=== PATIENT | female | born 1960 | race Caucasian/White ===

== ENCOUNTER 2018-07-29 15:21 | Emergency (ER) | payer MEDICAID ==
[~2018-07-29] VITALS: Ht 167.6 cm; Wt 70.5 kg
[~2018-07-29 15:21] MED LIST: CLIN-96 PO; HYDR-4383 PO; PIP1KIT21 TP; SUCR1ORA12 PO
[2018-07-29 15:33] VITALS: BP 110/77
[2018-07-29] MEDS ORDERED: ketorolac tromethamine 15mg/ml inj. IM ONE (17:00)
[2018-07-29] MEDS ORDERED: TRAM1TAB PO (17:01)
[2018-07-29] MEDS ORDERED: METH4TAB81 PO (17:01)
== END 2018-07-29 17:23 | disposition home or self-care (01) ==
LOC: ER 15:21
DX: M16.12 Unilateral primary osteoarthritis, left hip (principal); I50.9 Heart failure, unspecified; I11.0 Hypertensive heart disease with heart failure; J44.9 Chronic obstructive pulmonary disease, unspecified; E11.9 Type 2 diabetes mellitus without complications; G89.29 Other chronic pain; F17.200 Nicotine dependence, unspecified, uncomplicated; Z90.49 Acquired absence of other specified parts of digestive tract; Z95.0 Presence of cardiac pacemaker; Z98.890 Other specified postprocedural states; Z56.0 Unemployment, unspecified; Z88.0 Allergy status to penicillin; Z88.8 Allergy status to other drugs, medicaments and biological substances; Z91.018 Allergy to other foods; Z79.2 Long term (current) use of antibiotics; Z79.899 Other long term (current) drug therapy
CPT/HCPCS: 73501; 96372; 99284; J1885

== ENCOUNTER 2018-09-08 14:05 | Emergency (ER) | payer MEDICAID ==
[~2018-09-08] VITALS: Ht 170.2 cm; Wt 68.2 kg
[~2018-09-08 14:05] MED LIST changes: +METH4TAB81 PO
[2018-09-08] MEDS ORDERED: NAPR-996 PO (14:32)
[2018-09-08] MEDS ORDERED: HYDR-4383 PO (14:32)
[2018-09-08] MEDS ORDERED: HYDROcodone/acetaminophen 10/325mg tab PO ONE (14:35)
[2018-09-08] MEDS ORDERED: ketorolac trometh inj. 60 MG/2 ML VIAL IM ONE (14:35)
[2018-09-08 14:43] VITALS: BP 115/76
== END 2018-09-08 14:48 | disposition home or self-care (01) ==
LOC: ER 14:05
DX: M16.12 Unilateral primary osteoarthritis, left hip (principal); I11.0 Hypertensive heart disease with heart failure; I50.9 Heart failure, unspecified; J45.909 Unspecified asthma, uncomplicated; E11.9 Type 2 diabetes mellitus without complications; Z86.73 Personal history of transient ischemic attack (TIA), and cerebral infarction without residual deficits; G89.29 Other chronic pain; Z90.49 Acquired absence of other specified parts of digestive tract; Z90.89 Acquired absence of other organs; Z95.0 Presence of cardiac pacemaker; Z91.018 Allergy to other foods; Z88.0 Allergy status to penicillin; Z88.8 Allergy status to other drugs, medicaments and biological substances; Z79.899 Other long term (current) drug therapy; Z56.0 Unemployment, unspecified
CPT/HCPCS: 96372; 99283; J1885

== ENCOUNTER 2019-04-13 23:27 | Emergency (ER) | payer MEDICAID ==
[~2019-04-13] VITALS: Ht 170.2 cm; Wt 70.0 kg
[~2019-04-13 23:27] MED LIST changes: +CLIN-90 PO; -CLIN-96 PO; +DICL100G15 TOP; +NAPR-996 PO
[2019-04-14] MEDS ORDERED: ipratropium/albuterol 3ml nebule NEB ONE (00:05)
[2019-04-14] MEDS ORDERED: benzonatate 100mg capsule PO ONE (00:05)
--- NOTE | 2019-04-14 00:55 | NUR ---
PT ASKING IF I CAN MENTION TO MD ABOUT THE PAIN SHE IS HAVING IN HER BACK AND HIP
[2019-04-14] MEDS ORDERED: ibuprofen tablet 400 MG TABLET PO ONE (01:00)
[2019-04-14] MEDS ORDERED: BENZ-16 PO (01:25)
[2019-04-14] MEDS ORDERED: ALBU18HF2 INH (01:25)
[2019-04-14] MEDS ORDERED: INHA1INH2 INH (01:25)
--- NOTE | 2019-04-14 01:50 | NUR ---
PT NOT IN HER ROOM VISITOR NOT ABLE TO FIND HER . CHECKED ALL BATHROOMS. PT NOT FOUND. VISITOR WENT OUT TO CAR AND BROUGHT PT BACK IN . PT STATES SHE THOUGHT IT WAS TIME TO GO . REMINDED PT THAT THEY WERE NOT DISCHARGED , THEY DIDNT SIGN PAPER WORK NOR WERE THEY TOLD THEY CAN LEAVE
[2019-04-14 01:57] VITALS: BP 113/69
== END 2019-04-14 01:52 | disposition home or self-care (01) ==
LOC: ER 23:28
DX: J44.1 Chronic obstructive pulmonary disease with (acute) exacerbation (principal); F17.200 Nicotine dependence, unspecified, uncomplicated; I11.0 Hypertensive heart disease with heart failure; I50.9 Heart failure, unspecified; E11.9 Type 2 diabetes mellitus without complications; G89.29 Other chronic pain; F12.90 Cannabis use, unspecified, uncomplicated; Z86.73 Personal history of transient ischemic attack (TIA), and cerebral infarction without residual deficits; Z56.0 Unemployment, unspecified; Z90.49 Acquired absence of other specified parts of digestive tract; Z95.0 Presence of cardiac pacemaker; Z88.8 Allergy status to other drugs, medicaments and biological substances; Z91.018 Allergy to other foods; Z88.0 Allergy status to penicillin; Z79.899 Other long term (current) drug therapy
CPT/HCPCS: 71046; 94640; 94760; 99283

== ENCOUNTER 2019-10-23 05:47 | Inpatient (IN) | payer MEDICAID ==
[~2019-10-23] VITALS: Ht 170.2 cm; Wt 68.1 kg
[~2019-10-23 05:47] MED LIST changes: +ALBU18HF2 INH; -CLIN-90 PO; +CLIN-97 PO; +INHA1INH2 INH
[2019-10-23] MEDS ORDERED: dexamethasone sod phosphate 10mg/ml inj IV STA (05:56)
[2019-10-23] MEDS ORDERED: ipratropium/albuterol 3ml nebule NEB ONE (06:00)
[2019-10-23 06:30] LABS: BASOPHILS % (AUTO) 0.5 % (0-1); EOSINOPHILS # (AUTO) 0.1 X10'3 (0-0.9); EOSINOPHILS % (AUTO) 1.2 % (0-6); HEMATOCRIT 40.1 % (35.0-45.0); HEMOGLOBIN 13.1 g/dl (12.0-16.0); LYMPHOCYTES % (AUTO) 24.1 % (21-51); MEAN CORPUSCULAR HEMOGLOBIN 29.3 PG (27.0-31.0); MEAN CORPUSCULAR HGB CONC 32.7 g/dL (33.0-36.5); MEAN CORPUSCULAR VOLUME 89.5 FL (78-98); MEAN PLATELET VOLUME 9.3 FL (7.4-10.4); MONOCYTES # (AUTO) 0.5 X10'3 (0-0.9); MONOCYTES % (AUTO) 6.4 % (2-12); NEUTROPHILS # (AUTO) 5.7 X10'3 (1.8-7.7); NEUTROPHILS % (AUTO) 67.8 % (42-75); PLATELET COUNT 205 X10'3 (140-440); RED BLOOD COUNT 4.48 X10'6 (4.20-5.60); RED CELL DISTRIBUTION WIDTH 14.7 % (11.5-14.5); WHITE BLOOD COUNT 8.5 X10'3 (4.5-11.0)
[2019-10-23 06:35] LABS: ALANINE AMINOTRANSFERASE 21 U/L (12-78); ALBUMIN 3.2 G/DL (3.4-5.0); ALKALINE PHOSPHATASE 86 IU/L (46-116); ANION GAP 7 (8-16); ASPARTATE AMINO TRANSFERASE 24 U/L (10-37); BILIRUBIN,TOTAL 0.7 MG/DL (0.1-1.0); BLOOD UREA NITROGEN 11 MG/DL (7-18); BUN/CREATININE RATIO 15.3 (6.6-38.0); CALCIUM 8.4 MG/DL (8.5-10.1); CHLORIDE 104 MMOL/L (99-107); CREATININE 0.72 MG/DL (0.40-0.90); GLUCOSE 141 MG/DL (70-104); POTASSIUM 3.3 MMOL/L (3.5-5.1); SODIUM 139 MMOL/L (135-145); TOTAL CARBON DIOXIDE 27.8 MMOL/L (24-32); TOTAL PROTEIN 6.5 G/DL (6.4-8.2); eGFR 83 ML/MIN
[2019-10-23] MEDS ORDERED: potassium Cl 20 mEq SR tablet PO STA (06:55)
[2019-10-23] MEDS ORDERED: DOXYCYCLINE 100MG CAPSULE PO STA (06:57)
--- NOTE | 2019-10-23 07:58 | NUR ---
rapid covid swab done results -
[2019-10-23] MEDS ORDERED: aspirin 81mg tab.chew PO ONE (08:20)
[2019-10-23] MEDS ORDERED: albuterol 2.5 MG/3 ML nebule CONTNEB PRN (09:30)
[2019-10-23] MEDS ORDERED: LORazepam 2 mg/ml vial IV ONE (09:30)
[2019-10-23] MEDS ORDERED: acetaminophen 650mg rectal suppository RC PRN (09:40)
[2019-10-23] MEDS ORDERED: ondansetron/PF 4mg/2ml inj IV PRN (09:40)
[2019-10-23] MEDS ORDERED: bisacodyl 10mg suppository rectal RC PRN (09:40)
[2019-10-23] MEDS ORDERED: diphenhydrAMINE 25mg capsule PO PRN (09:40)
[2019-10-23] MEDS ORDERED: HYDROcodone/acetaminophen 5mg/325mg tablet PO PRN (09:40)
[2019-10-23] MEDS ORDERED: magnesium 4gm in 100ml NS 100 ML IV PRN (09:40)
[2019-10-23] MEDS ORDERED: magnesium Cl slow-release 64mg tablet PO PRN (09:40)
[2019-10-23] MEDS ORDERED: magnesium 2GM in 50ml NS 50 ML IV PRN (09:40)
[2019-10-23] MEDS ORDERED: mag hydrox/Alum hydrox/simeth 30ml oral suspension PO PRN (09:40)
[2019-10-23] MEDS ORDERED: potassium Cl 20 mEq SR tablet PO PRN (09:40)
[2019-10-23] MEDS ORDERED: magnesium hydroxide 30ml (MOM) UD suspension PO PRN (09:40)
[2019-10-23] MEDS ORDERED: methylPREDNISolone sod succ 125mg/2ml vial IV ONE (09:40)
[2019-10-23] MEDS ORDERED: potassium CL 10mEq/100ml bag 100 ML IV PRN ×2 (09:40)
[2019-10-23] MEDS ORDERED: morphine 2 MG/ML inj. syringe IV PRN ×2 (09:40)
[2019-10-23] MEDS ORDERED: acetaminophen 325mg tablet PO PRN ×2 (09:40)
[2019-10-23] MEDS ORDERED: CARV25TA2 (09:50)
[2019-10-23] MEDS: levoFLOXACIN-Levaquin 750MG/D5 150 ML IV SCH (09:57)
[2019-10-23] MEDS: furosemide 10 MG/1 ML 10ml inj IV SCH ×2 (09:57→19:45)
[2019-10-23] MEDS: normal saline 1000ml 1,000 ML IV SCH (09:58)
[2019-10-23 10:03] LABS: HEMOGLOBIN A1C 6.3 % (4.5-6.2)
--- NOTE | 2019-10-23 10:30 | NUR ---
Patient in room PCU 3018. I have received report from Justice HENRY and had the opportunity to ask questions and assume patient care.
[2019-10-23 10:44] VITALS: BP 125/92
[2019-10-23 11:21] LABS: CLARITY,URINE CLEAR (Clear); COLOR,URINE YELLOW (Yellow); GLUCOSE, URINE NEGATIVE (Neg); KETONES,URINE NEGATIVE (Neg); LEUKOCYTE ESTERASE ,URINE TRACE (Neg); NITRITES, URINE NEGATIVE (Neg); OCCULT BLOOD,URINE TRACE-INTACT (Neg); PROTEIN,URINE NEGATIVE (Neg)
[2019-10-23 11:25] LABS: BACTERIA,URINE NONE SEEN /HPF (Neg); MUCUS STRANDS NONE SEEN /LPF (Neg); RBC,URINE NONE SEEN /HPF (0-2); SQUAMOUS EPITHELIAL CELL,UR FEW /LPF (FEW); UA COLLECTION TYPE VOIDED; WBC,URINE 0-4 /HPF (0-4)
[2019-10-23] MEDS: ipratropium/albuterol 3ml nebule NEB SCH ×4 (12:07→23:22)
[2019-10-23 12:31] LABS: ABG BASE EXCESS 3.2 mmol/L (-2.0-2.0); ABG HCO3 26.1 mmol/L (22.0-26.0); ABG OXYGEN SATURATION 93.5 % (94-97); ABG PCO2 (T) 34.8 mmHg (32.0-45.0); ALLEN'S TEST POSITIVE; FCOHb 1.8 % (0.0-3.9); FLOW 3 L/min; FMetHb 0.2 % (0.0-1.5); FO2Hb 91.6 % (94-97); TOTAL HEMOGLOBIN 15.6 G/dl (12.0-16.0)
[2019-10-23 15:00] VITALS: BP 114/83
[2019-10-23] MEDS ORDERED: CARV25TA PO ×2 (15:59→16:16)
[2019-10-23] MEDS ORDERED: NAPR-56 PO (16:14)
[2019-10-23] MEDS ORDERED: ALB0.5UD IH (16:14)
[2019-10-23] MEDS: methylPREDNISolone sod succ 125mg/2ml vial IV SCH ×2 (16:34→23:45)
[2019-10-23] MEDS: HYDROcodone/acetaminophen 10/325mg tab PO PRN (16:35)
--- NOTE | 2019-10-23 17:49 | NUR ---
Page to JEANETTE PAGER ID: [phone] MESSAGE: Patient Vandana 3018 A. Patient would like a nicotine patch please. Current half a pack a day. Muna BENNY [phone]
[2019-10-23] MEDS ORDERED: nicotine 14mg patch - 24hr TD ONE (18:15)
--- NOTE | 2019-10-23 18:35 | NUR ---
Patient in room PCU 3018. I have received report from ELAINE Toro and had the opportunity to ask questions and assume patient care.
--- NOTE | 2019-10-23 18:37 | NUR ---
Problems reprioritized. Patient report given, questions answered & plan of care reviewed with Елена HENRY.
[2019-10-23 19:00] VITALS: BP 111/63
[2019-10-23] MEDS: heparin, porcine 5000 units/ml vial SQ SCH (19:44)
[2019-10-23] MEDS: K and/or MAG REPLACEMENT MC SCH (19:45)
[2019-10-23 20:02] LABS: ETHANOL < 0.010 GM/DL (0.0-0.010)
[2019-10-23] MEDS ORDERED: temazepam 15mg capsule PO PRN (21:00)
[2019-10-23 22:50] LABS: URINE AMPHETAMINE SCREEN NEGATIVE (Neg); URINE BARBITUATE SCREEN NEGATIVE (Neg); URINE BENZODIAZEPINES SCREEN NEGATIVE (Neg); URINE CANNABINOID SCREEN NEGATIVE (Neg); URINE COCAINE SCREEN NEGATIVE (Neg); URINE METHADONE SCREEN NEGATIVE (Neg); URINE OPIATE SCREEN POSITIVE (Neg); URINE PHENCYCLIDINE SCREEN NEGATIVE (Neg)
[2019-10-23 23:00] VITALS: BP 113/76
[2019-10-24] VITALS (16 sets, daily range): BP systolic 94–119; BP diastolic 53–78
[2019-10-24] MEDS ORDERED: CefTRIAXone/D5W-Rocephin 1gm 50 ML IV SCH
[2019-10-24] MEDS: HYDROcodone/acetaminophen 10/325mg tab PO PRN ×4 (01:17→23:24)
[2019-10-24] MEDS: ipratropium/albuterol 3ml nebule NEB SCH ×6 (03:07→23:41)
[2019-10-24 06:02] LABS: BASOPHILS % (AUTO) 0.1 % (0-1); EOSINOPHILS % (AUTO) 0 % (0-6); HEMATOCRIT 43.2 % (35.0-45.0); LYMPHOCYTES # (AUTO) 0.9 X10'3 (1.1-4.8); LYMPHOCYTES % (AUTO) 4.5 % (21-51); MEAN CORPUSCULAR HEMOGLOBIN 28.9 PG (27.0-31.0); MEAN CORPUSCULAR HGB CONC 32.5 g/dL (33.0-36.5); MEAN CORPUSCULAR VOLUME 88.8 FL (78-98); MEAN PLATELET VOLUME 9.7 FL (7.4-10.4); MONOCYTES # (AUTO) 0.3 X10'3 (0-0.9); MONOCYTES % (AUTO) 1.8 % (2-12); NEUTROPHILS # (AUTO) 18.2 X10'3 (1.8-7.7); NEUTROPHILS % (AUTO) 93.6 % (42-75); PLATELET COUNT 229 X10'3 (140-440); RED BLOOD COUNT 4.86 X10'6 (4.20-5.60); RED CELL DISTRIBUTION WIDTH 13.9 % (11.5-14.5); WHITE BLOOD COUNT 19.4 X10'3 (4.5-11.0)
--- NOTE | 2019-10-24 06:14 | NUR ---
Problems reprioritized. Patient report given, questions answered & plan of care reviewed with ELAINE Toro.
[2019-10-24] MEDS ORDERED: iohexol 350MG/ML 100ml bottle IV ONE (06:20)
[2019-10-24 06:24] LABS: ALANINE AMINOTRANSFERASE 16 U/L (12-78); ALBUMIN 3.2 G/DL (3.4-5.0); ALBUMIN/GLOBULIN RATIO 0.9 (1.1-1.5); ALKALINE PHOSPHATASE 83 IU/L (46-116); ANION GAP 10 (8-16); ASPARTATE AMINO TRANSFERASE 16 U/L (10-37); BILIRUBIN,TOTAL 0.8 MG/DL (0.1-1.0); BLOOD UREA NITROGEN 13 MG/DL (7-18); BUN/CREATININE RATIO 16.5 (6.6-38.0); CALCIUM 9.2 MG/DL (8.5-10.1); CHLORIDE 100 MMOL/L (99-107); CHOLESTEROL 128 MG/DL (0-200); CREATININE 0.79 MG/DL (0.40-0.90); GLUCOSE 163 MG/DL (70-104); HDL CHOLESTEROL 32 MG/DL (35-60); LDL CHOLESTEROL 86 MG/DL (50-100); MAGNESIUM 1.5 MG/DL (1.5-2.4); PHOSPHORUS 3.8 MG/DL (2.3-4.5); POTASSIUM 3.3 MMOL/L (3.5-5.1); SODIUM 139 MMOL/L (135-145); TOTAL CARBON DIOXIDE 28.8 MMOL/L (24-32); TOTAL PROTEIN 6.7 G/DL (6.4-8.2); TRIGLYCERIDES 47 MG/DL (20-135); eGFR 75 ML/MIN
--- NOTE | 2019-10-24 06:30 | NUR ---
Patient in room PCU 3018. I have received report from ELAINE Christiansen and had the opportunity to ask questions and assume patient care.
[2019-10-24] MEDS: potassium Cl 20 mEq SR tablet PO PRN ×3 (07:47→17:38)
[2019-10-24] MEDS: levoFLOXACIN-Levaquin 750MG/D5 150 ML IV SCH (07:48)
[2019-10-24] MEDS: nicotine 14mg patch - 24hr TD SCH (07:48)
[2019-10-24] MEDS: methylPREDNISolone sod succ 125mg/2ml vial IV SCH ×3 (07:49→23:23)
[2019-10-24] MEDS: furosemide 10 MG/1 ML 10ml inj IV SCH ×2 (07:49→19:55)
[2019-10-24] MEDS: heparin, porcine 5000 units/ml vial SQ SCH ×2 (07:49→19:51)
[2019-10-24] MEDS: K and/or MAG REPLACEMENT MC SCH ×2 (07:49→20:00)
--- NOTE | 2019-10-24 09:45 | NUR ---
Patient's expected to come and picker machine operator chapin, total $52.00 from patient. Chapin counted by two nurses and confirmed. Will be delivered to lobby by me when he gets here.
[2019-10-24] MEDS ORDERED: nitroGLYCERIN 0.4mg SUBLingual tab SL PRN (10:00)
[2019-10-24] MEDS ORDERED: metoprolol tartrate 1mg/ml inj IV PRN (10:00)
[2019-10-24] MEDS ORDERED: aminophylline 250mg/10ml inj. IV PRN (10:00)
[2019-10-24] MEDS ORDERED: regadenoson 0.4mg/5ml syringe IV PRN (10:00)
--- NOTE | 2019-10-24 18:27 | NUR ---
Problems reprioritized. Patient report given, questions answered & plan of care reviewed with ELAINE Queen. Patient stable at transfer of care.
--- NOTE | 2019-10-24 19:24 | NUR ---
Patient in room PCU 3018. I have received report from Muna HENRY and had the opportunity to ask questions and assume patient care.
[2019-10-24] MEDS: lactobacillus rhamnosus 10,000 MMU CELLS/CAPSULE PO SCH (19:51)
[2019-10-25] VITALS (13 sets, daily range): BP systolic 95–118; BP diastolic 60–80
[2019-10-25] MEDS: ipratropium/albuterol 3ml nebule NEB SCH ×6 (03:22→23:10)
[2019-10-25] MEDS: HYDROcodone/acetaminophen 10/325mg tab PO PRN ×5 (03:46→23:50)
[2019-10-25 05:54] LABS: BASOPHILS % (AUTO) 0.1 % (0-1); EOSINOPHILS % (AUTO) 0 % (0-6); HEMATOCRIT 42.7 % (35.0-45.0); HEMOGLOBIN 13.8 g/dl (12.0-16.0); LYMPHOCYTES # (AUTO) 0.6 X10'3 (1.1-4.8); LYMPHOCYTES % (AUTO) 2.9 % (21-51); MEAN CORPUSCULAR HEMOGLOBIN 28.7 PG (27.0-31.0); MEAN CORPUSCULAR HGB CONC 32.4 g/dL (33.0-36.5); MEAN CORPUSCULAR VOLUME 88.6 FL (78-98); MEAN PLATELET VOLUME 9.5 FL (7.4-10.4); MONOCYTES # (AUTO) 0.5 X10'3 (0-0.9); MONOCYTES % (AUTO) 2.4 % (2-12); NEUTROPHILS # (AUTO) 20.9 X10'3 (1.8-7.7); NEUTROPHILS % (AUTO) 94.6 % (42-75); PLATELET COUNT 254 X10'3 (140-440); RED BLOOD COUNT 4.82 X10'6 (4.20-5.60); RED CELL DISTRIBUTION WIDTH 14.5 % (11.5-14.5); WHITE BLOOD COUNT 22.1 X10'3 (4.5-11.0)
[2019-10-25 05:58] LABS: ALANINE AMINOTRANSFERASE 19 U/L (12-78); ALBUMIN 3.3 G/DL (3.4-5.0); ALKALINE PHOSPHATASE 84 IU/L (46-116); ANION GAP 5 (8-16); ASPARTATE AMINO TRANSFERASE 10 U/L (10-37); BILIRUBIN,TOTAL 0.4 MG/DL (0.1-1.0); BLOOD UREA NITROGEN 24 MG/DL (7-18); BUN/CREATININE RATIO 28.2 (6.6-38.0); CALCIUM 9.1 MG/DL (8.5-10.1); CHLORIDE 102 MMOL/L (99-107); CREATININE 0.85 MG/DL (0.40-0.90); GLUCOSE 181 MG/DL (70-104); PHOSPHORUS 4.3 MG/DL (2.3-4.5); POTASSIUM 4.3 MMOL/L (3.5-5.1); SODIUM 139 MMOL/L (135-145); TOTAL CARBON DIOXIDE 31.7 MMOL/L (24-32); TOTAL PROTEIN 6.7 G/DL (6.4-8.2); eGFR 69 ML/MIN
--- NOTE | 2019-10-25 06:12 | NUR ---
Problems reprioritized. Patient report given, questions answered & plan of care reviewed with Jim HENRY.
--- NOTE | 2019-10-25 06:30 | NUR ---
Patient in room PCU 3018. I have received report from Tereza HENRY and had the opportunity to ask questions and assume patient care.
[2019-10-25] MEDS: levoFLOXACIN-Levaquin 750MG/D5 150 ML IV SCH (07:24)
[2019-10-25] MEDS: heparin, porcine 5000 units/ml vial SQ SCH (07:25)
[2019-10-25] MEDS: methylPREDNISolone sod succ 125mg/2ml vial IV SCH ×3 (07:26→23:55)
[2019-10-25] MEDS: furosemide 10 MG/1 ML 10ml inj IV SCH ×2 (07:29→19:38)
--- NOTE | 2019-10-25 07:49 | NUR ---
Paged Dr. Gilbert. Mohini Ross, [id number]. [facility] patients meat packager is Dr. Lares. Rach Wilson wanted you notified. Patient would prefer to be seen by Dr. Lares. Jim [phone]
[2019-10-25] MEDS: K and/or MAG REPLACEMENT MC SCH ×2 (08:00→19:56)
[2019-10-25] MEDS: lactobacillus rhamnosus 10,000 MMU CELLS/CAPSULE PO SCH ×2 (08:35→19:39)
[2019-10-25] MEDS: nicotine 14mg patch - 24hr TD SCH (08:41)
[2019-10-25] MEDS: normal saline 1000ml 1,000 ML IV SCH (10:12)
[2019-10-25] MEDS ORDERED: midazolam 2 mg/2 ml injection ONE ×3 (11:16→12:06)
[2019-10-25] MEDS ORDERED: iohexol 350 MG/ML 50ML vial IV ONE (11:17)
[2019-10-25] MEDS ORDERED: LIDOcaine 1% (10mg/ml)w/preservative injection 20ml MDV ONE (11:17)
[2019-10-25] MEDS ORDERED: fentaNYL/PF 50MCG/1 ML 2ML syringe ONE ×2 (11:17→12:06)
[2019-10-25] MEDS ORDERED: heparin 1,000unit/ml 10ml vial 10 ML ONE (11:17)
[2019-10-25] MEDS ORDERED: iohexol 350MG/ML 100ml bottle IV ONE (11:17)
[2019-10-25] MEDS ORDERED: normal saline 1000ml 1,000 ML IV SCH (12:40)
[2019-10-25] MEDS ORDERED: OXAZEpam 15mg capsule PO PRN (14:20)
--- NOTE | 2019-10-25 15:37 | NUR ---
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
--- NOTE | 2019-10-25 18:01 | NUR ---
Patient not on ONEL or ARB per MD orders
--- NOTE | 2019-10-25 18:12 | NUR ---
Problems reprioritized. Patient report given, questions answered & plan of care reviewed with Tereza HENRY.
--- NOTE | 2019-10-25 18:45 | NUR ---
Patient in room PCU 3018. I have received report from Jim HENRY and had the opportunity to ask questions and assume patient care.
[2019-10-25] MEDS ORDERED: amiodarone 150mg/dext, iso-os 100 ML IV ONE ×3 (19:10→19:25)
--- NOTE | 2019-10-25 19:17 | NUR ---
Pt had 6 beat run of vtach, notified Dr Lares of change in tele monitoring. Amiodarone was ordered.
[2019-10-25] MEDS: carVEDilol 12.5mg tablet PO SCH (19:39)
[2019-10-26 02:00] VITALS: BP 97/64
[2019-10-26] MEDS: ipratropium/albuterol 3ml nebule NEB SCH ×3 (03:07→11:21)
[2019-10-26] MEDS: normal saline 1000ml 1,000 ML IV SCH (04:34)
--- NOTE | 2019-10-26 06:14 | NUR ---
Problems reprioritized. Patient report given, questions answered & plan of care reviewed with Jim HENRY.
[2019-10-26 06:46] LABS: BASOPHILS % (AUTO) 0.1 % (0-1); EOSINOPHILS % (AUTO) 0 % (0-6); HEMATOCRIT 44.5 % (35.0-45.0); HEMOGLOBIN 14.2 g/dl (12.0-16.0); LYMPHOCYTES # (AUTO) 0.6 X10'3 (1.1-4.8); LYMPHOCYTES % (AUTO) 3.6 % (21-51); MEAN CORPUSCULAR HEMOGLOBIN 28.5 PG (27.0-31.0); MEAN CORPUSCULAR HGB CONC 31.9 g/dL (33.0-36.5); MEAN CORPUSCULAR VOLUME 89.4 FL (78-98); MEAN PLATELET VOLUME 9.4 FL (7.4-10.4); MONOCYTES # (AUTO) 0.6 X10'3 (0-0.9); MONOCYTES % (AUTO) 3.5 % (2-12); NEUTROPHILS # (AUTO) 16.3 X10'3 (1.8-7.7); NEUTROPHILS % (AUTO) 92.8 % (42-75); PLATELET COUNT 260 X10'3 (140-440); RED BLOOD COUNT 4.98 X10'6 (4.20-5.60); RED CELL DISTRIBUTION WIDTH 14.8 % (11.5-14.5); WHITE BLOOD COUNT 17.5 X10'3 (4.5-11.0)
[2019-10-26 07:00] VITALS: BP 118/77
[2019-10-26 07:01] LABS: ALANINE AMINOTRANSFERASE 20 U/L (12-78); ALBUMIN 3.2 G/DL (3.4-5.0); ALBUMIN/GLOBULIN RATIO 0.9 (1.1-1.5); ALKALINE PHOSPHATASE 75 IU/L (46-116); ANION GAP 6 (8-16); ASPARTATE AMINO TRANSFERASE 12 U/L (10-37); BILIRUBIN,TOTAL 0.4 MG/DL (0.1-1.0); BLOOD UREA NITROGEN 24 MG/DL (7-18); BUN/CREATININE RATIO 33.3 (6.6-38.0); CALCIUM 8.7 MG/DL (8.5-10.1); CHLORIDE 100 MMOL/L (99-107); CREATININE 0.72 MG/DL (0.40-0.90); GLUCOSE 226 MG/DL (70-104); PHOSPHORUS 3.7 MG/DL (2.3-4.5); POTASSIUM 4.1 MMOL/L (3.5-5.1); SODIUM 135 MMOL/L (135-145); TOTAL CARBON DIOXIDE 29.1 MMOL/L (24-32); TOTAL PROTEIN 6.6 G/DL (6.4-8.2); eGFR 83 ML/MIN
[2019-10-26] MEDS: HYDROcodone/acetaminophen 10/325mg tab PO PRN (07:35)
[2019-10-26] MEDS: carVEDilol 12.5mg tablet PO SCH (07:55)
[2019-10-26] MEDS: lactobacillus rhamnosus 10,000 MMU CELLS/CAPSULE PO SCH (07:55)
[2019-10-26] MEDS: methylPREDNISolone sod succ 125mg/2ml vial IV SCH (07:56)
[2019-10-26] MEDS: K and/or MAG REPLACEMENT MC SCH (08:00)
[2019-10-26] MEDS ORDERED: amiodarone 200mg tablet PO SCH (08:00)
[2019-10-26] MEDS: levoFLOXACIN-Levaquin 750MG/D5 150 ML IV SCH (08:02)
[2019-10-26] MEDS: furosemide 10 MG/1 ML 10ml inj IV SCH (08:02)
[2019-10-26] MEDS: nicotine 14mg patch - 24hr TD SCH (08:09)
[2019-10-26] MEDS ORDERED: POTA20TA19 PO (09:56)
[2019-10-26] MEDS ORDERED: LEVO750T46 PO (09:56)
[2019-10-26] MEDS ORDERED: AMIO200T61 PO (09:56)
[2019-10-26] MEDS ORDERED: PRED10TA23 PO (09:56)
[2019-10-26] MEDS ORDERED: FURO-150 PO (09:56)
[2019-10-26] MEDS ORDERED: LACT1CAP26 PO (09:56)
[2019-10-26] MEDS ORDERED: LISI10TA4 PO (09:56)
[2019-10-26] MEDS ORDERED: NICO-631 TD (09:56)
--- NOTE | 2019-10-26 10:34 | NUR ---
Gia Gilbert. Mohini Ross. [id number]. Patient is not on ONEL or ARB and does not meet exclusion criteria. Core measures for CHF need addressed prior to DC. TY! Jim [id number] Addendum: 10/26/19 at 1057 by Jim Martin RN patient discharging on Lisinopril 10 mg daily.
--- NOTE | 2019-10-26 10:43 | NUR ---
Unable to get a hold of [facility] to schedule appointment for patient. Called several times they are picking up the phone and hanging up.
[2019-10-26 11:00] VITALS: BP 95/62
--- NOTE | 2019-10-26 13:38 | NUR ---
Patient safe to discharge per MD orders, discharge instructions reviewed with patient and questions answered, prescriptions called into [facility] on [address], PIV and tele DC, meds picked up from pharmacy and given to patients, attempted to schedule follow up appointment with [facility] and Dr. Lares microbiology technician with no luck, patients belongings stayed in patient room, wheeled to lobby, picked up by daughter in private vehicle.
== END 2019-10-26 13:30 | disposition home or self-care (01) | DRG 191 ==
LOC: ER 05:47 → ED HOLD 09:36 → EDBEDREQ 09:54 → PCU 3S 10:26
PROVIDERS: ADMIT Family Medicine; ATTEND Family Medicine
PROC: 4A02XM4 Measurement of Cardiac Total Activity, External Approach (ICD-10-PCS; 2019-10-24)
PROC: 3E033HZ Introduction of Radioactive Substance into Peripheral Vein, Percutaneous Approach (ICD-10-PCS; 2019-10-24)
PROC: 4A023N7 Measurement of Cardiac Sampling and Pressure, Left Heart, Percutaneous Approach (ICD-10-PCS; principal; 2019-10-25)
PROC: B2111ZZ Fluoroscopy of Multiple Coronary Arteries using Low Osmolar Contrast (ICD-10-PCS; 2019-10-25)
PROC: B2151ZZ Fluoroscopy of Left Heart using Low Osmolar Contrast (ICD-10-PCS; 2019-10-25)
PROC: 4A033BC Measurement of Arterial Pressure, Coronary, Percutaneous Approach (ICD-10-PCS; 2019-10-25)
DX: I24.9 Acute ischemic heart disease, unspecified (principal); J96.90 Respiratory failure, unspecified, unspecified whether with hypoxia or hypercapnia; J44.1 Chronic obstructive pulmonary disease with (acute) exacerbation; I50.9 Heart failure, unspecified; J18.9 Pneumonia, unspecified organism; I11.0 Hypertensive heart disease with heart failure; E05.90 Thyrotoxicosis, unspecified without thyrotoxic crisis or storm; E11.9 Type 2 diabetes mellitus without complications; E87.6 Hypokalemia; F12.10 Cannabis abuse, uncomplicated; F15.90 Other stimulant use, unspecified, uncomplicated; F17.200 Nicotine dependence, unspecified, uncomplicated; I42.0 Dilated cardiomyopathy; Z20.828 Contact with and (suspected) exposure to other viral communicable diseases; I42.6 Alcoholic cardiomyopathy; I42.7 Cardiomyopathy due to drug and external agent; J44.0 Chronic obstructive pulmonary disease with (acute) lower respiratory infection; N39.0 Urinary tract infection, site not specified; Z86.73 Personal history of transient ischemic attack (TIA), and cerebral infarction without residual deficits; Z91.19 Patient's noncompliance with other medical treatment and regimen; Z95.810 Presence of automatic (implantable) cardiac defibrillator; Z88.8 Allergy status to other drugs, medicaments and biological substances
CPT/HCPCS: 36415; 36600; 71045; 71270; 78452; 80053; 80061; 80305; 80320; 81001; 82803; 83036; 83605; 83735; 83880; 84100; 84145; 84439; 84443; 84484; 85018; 85025; 87040; 87081; 87088; 87635; 93005; 93017; 93306; 93458; 93571; 94640; 94760; 96374; 97116; 97161; 97530; 99152; 99153; 99285; A4620; A6258; A9500; C1760; C1769; C1894; G0378; J0280; J0696; J1100; J1644; J1940; J1956; J2001; J2060; J2250; J2785; J2930; J3010; J7030; Q9967

== ENCOUNTER 2020-08-04 06:26 | Inpatient (IN) | payer MEDICAID ==
[~2020-08-04] VITALS: Ht 170.2 cm; Wt 72.7 kg
[~2020-08-04 06:26] MED LIST changes: +ALB0.5UD IH; -ALBU18HF2 INH; +AMIO200T61 PO; +CARV25TA PO; -CLIN-97 PO; -DICL100G15 TOP; -HYDR-4383 PO; -INHA1INH2 INH; +LACT1CAP26 PO; +LISI10TA27 PO; -METH4TAB81 PO; -NAPR-996 PO; +NICO-631 TD; -PIP1KIT21 TP; -SUCR1ORA12 PO
[2020-08-04 07:59] LABS: BASOPHILS # (AUTO) 0.1 X10'3 (0-0.2); BASOPHILS % (AUTO) 0.9 % (0-1); EOSINOPHILS # (AUTO) 0.1 X10'3 (0-0.9); EOSINOPHILS % (AUTO) 0.9 % (0-6); HEMATOCRIT 41.3 % (35.0-45.0); HEMOGLOBIN 13.3 g/dl (12.0-16.0); LYMPHOCYTES # (AUTO) 1.9 X10'3 (1.1-4.8); LYMPHOCYTES % (AUTO) 31.2 % (21-51); MEAN CORPUSCULAR HEMOGLOBIN 27.8 PG (27.0-31.0); MEAN CORPUSCULAR HGB CONC 32.1 g/dL (33.0-36.5); MEAN CORPUSCULAR VOLUME 86.7 FL (78-98); MEAN PLATELET VOLUME 8.8 FL (7.4-10.4); MONOCYTES # (AUTO) 0.5 X10'3 (0-0.9); MONOCYTES % (AUTO) 8.3 % (2-12); NEUTROPHILS # (AUTO) 3.6 X10'3 (1.8-7.7); NEUTROPHILS % (AUTO) 58.7 % (42-75); PLATELET COUNT 179 X10'3 (140-440); RED BLOOD COUNT 4.77 X10'6 (4.20-5.60); RED CELL DISTRIBUTION WIDTH 15.2 % (11.5-14.5); WHITE BLOOD COUNT 6.2 X10'3 (4.5-11.0)
[2020-08-04 08:13] LABS: ALANINE AMINOTRANSFERASE 18 U/L (12-78); ALBUMIN 3.3 G/DL (3.4-5.0); ALBUMIN/GLOBULIN RATIO 0.9 (1.1-1.5); ALKALINE PHOSPHATASE 107 IU/L (46-116); ANION GAP 10 (8-16); ASPARTATE AMINO TRANSFERASE 25 U/L (10-37); BILIRUBIN,TOTAL 1.1 MG/DL (0.1-1.0); BLOOD UREA NITROGEN 14 MG/DL (7-18); BUN/CREATININE RATIO 19.7 (6.6-38.0); CALCIUM 8.8 MG/DL (8.5-10.1); CHLORIDE 97 MMOL/L (99-107); CREATININE 0.71 MG/DL (0.40-0.90); GLUCOSE 152 MG/DL (70-104); SODIUM 135 MMOL/L (135-145); TOTAL CARBON DIOXIDE 27.7 MMOL/L (24-32); eGFR 85 ML/MIN
[2020-08-04] MEDS ORDERED: LORazepam 2 mg/ml vial IV ONE (08:40)
[2020-08-04] MEDS ORDERED: furosemide 10 MG/1 ML 10ml inj IV ONE (08:40)
[2020-08-04] MEDS ORDERED: FURO-150 PO (08:48)
--- NOTE | 2020-08-04 11:14 | NUR ---
earlier the pt's O2 sat dropped into the mid to low 80's after the ativan was given when asleep and when awake was 90-91% on RA. pt not on O2 at home but put on 2L NC here to assist her breathing. pt sleeping now. informed MD Mathews about this.
[2020-08-04 13:18] LABS: CLARITY,URINE CLEAR (Clear); COLOR,URINE YELLOW (Yellow); GLUCOSE, URINE NEGATIVE (Neg); KETONES,URINE NEGATIVE (Neg); LEUKOCYTE ESTERASE ,URINE NEGATIVE (Neg); NITRITES, URINE NEGATIVE (Neg); OCCULT BLOOD,URINE TRACE-INTACT (Neg); PROTEIN,URINE NEGATIVE (Neg)
[2020-08-04 13:22] LABS: UA COLLECTION TYPE VOIDED
[2020-08-04 13:30] LABS: BACTERIA,URINE FEW /HPF (Neg); MUCUS STRANDS FEW /LPF (Neg); RBC,URINE 0-2 /HPF (0-2); SQUAMOUS EPITHELIAL CELL,UR MODERATE /LPF (FEW); WBC,URINE 0-4 /HPF (0-4)
[2020-08-04 13:37] LABS: URINE AMPHETAMINE SCREEN POSITIVE (Neg); URINE BARBITUATE SCREEN NEGATIVE (Neg); URINE BENZODIAZEPINES SCREEN NEGATIVE (Neg); URINE CANNABINOID SCREEN POSITIVE (Neg); URINE COCAINE SCREEN NEGATIVE (Neg); URINE METHADONE SCREEN NEGATIVE (Neg); URINE OPIATE SCREEN POSITIVE (Neg); URINE PHENCYCLIDINE SCREEN NEGATIVE (Neg)
[2020-08-04] MEDS ORDERED: acetaminophen 325mg tablet PO PRN ×2 (14:00)
[2020-08-04] MEDS ORDERED: ipratropium/albuterol 3ml nebule NEB PRN (14:00)
[2020-08-04] MEDS ORDERED: diphenhydrAMINE 25mg capsule PO PRN (14:00)
[2020-08-04] MEDS ORDERED: morphine 2 MG/ML inj. syringe IV PRN ×2 (14:00)
[2020-08-04] MEDS ORDERED: LORazepam 2 mg/ml vial IV PRN (14:00)
[2020-08-04] MEDS ORDERED: potassium Cl 20 mEq SR tablet PO PRN (14:00)
[2020-08-04] MEDS ORDERED: potassium Cl 40MEQ/1/2NS 520ml 520 ML IV PRN ×2 (14:00)
[2020-08-04] MEDS ORDERED: thiamine 100mg/ml 2ml inj. IV ONE (14:00)
[2020-08-04] MEDS ORDERED: magnesium 2GM in 50ml NS 50 ML IV PRN (14:00)
[2020-08-04] MEDS ORDERED: haloperidol 5mg tablet PO PRN (14:00)
[2020-08-04] MEDS ORDERED: magnesium hydroxide 30ml (MOM) UD suspension PO PRN (14:00)
[2020-08-04] MEDS ORDERED: mag hydrox/Alum hydrox/simeth 30ml oral suspension PO PRN (14:00)
[2020-08-04] MEDS ORDERED: magnesium Cl slow-release 64mg tablet PO PRN (14:00)
[2020-08-04] MEDS ORDERED: ondansetron/PF 4mg/2ml inj IV PRN (14:00)
[2020-08-04] MEDS ORDERED: HYDROcodone/acetaminophen 5mg/325mg tablet PO PRN (14:00)
[2020-08-04] MEDS ORDERED: methylPREDNISolone sod succ 125mg/2ml vial IV ONE (14:00)
[2020-08-04] MEDS: methylPREDNISolone sod succ 125mg/2ml vial IV SCH ×2 (14:00→21:00)
[2020-08-04] MEDS ORDERED: magnesium 4gm in 100ml NS 100 ML IV PRN (14:00)
[2020-08-04] MEDS ORDERED: haloperidol lactate 5mg/ml inj IM PRN (14:00)
[2020-08-04] MEDS ORDERED: LORazepam 1 MG tablet PO PRN (14:00)
[2020-08-04] MEDS ORDERED: dextrose 50%-water 50ml dispensing syringe IV PRN ×3 (14:00→23:20)
[2020-08-04] MEDS ORDERED: acetaminophen 650mg rectal suppository RC PRN (14:00)
[2020-08-04] MEDS ORDERED: bisacodyl 10mg suppository rectal RC PRN (14:00)
[2020-08-04] MEDS ORDERED: iohexol 350MG/ML 100ml bottle IV ONE (14:12)
[2020-08-04 14:29] LABS: HEMOGLOBIN A1C 6.7 % (4.5-6.2)
[2020-08-04] MEDS ORDERED: PANT20TA18 PO (14:37)
[2020-08-04] MEDS ORDERED: ALBU17AE26 PO (14:37)
[2020-08-04] MEDS ORDERED: CARV25TA56 PO (14:37)
[2020-08-04] MEDS ORDERED: ASPI-1265 PO (14:37)
[2020-08-04] MEDS ORDERED: POTA20TA19 PO (14:37)
[2020-08-04] MEDS ORDERED: VILA40TA PO (14:37)
[2020-08-04] MEDS: furosemide 10 MG/1 ML 10ml inj IV SCH ×2 (14:38→21:00)
[2020-08-04] MEDS ORDERED: DIPH25CA83 PO (14:40)
[2020-08-04] MEDS: ipratropium/albuterol 3ml nebule NEB SCH ×2 (14:40→20:49)
--- NOTE | 2020-08-04 15:30 | NUR ---
PT NOW STATES SHE ALSO HIT HER HEAD AND HER LEFT HAND WHEN SHE FELL. NO OBVIOUS CHANGE IN MENTATION. OR OBVIOUS PAIN. USING LEFT HAND AND MOVING LEFT KNEE WELL.
--- NOTE | 2020-08-04 15:30 | NUR ---
Pt sitting on side of bed, dozed off to sleep and slipped off bed onto floor. Pt states left knee pain. Dr Gilbert paged.
--- NOTE | 2020-08-04 16:18 | NUR ---
SPOKE WITH MD REID AND HE REQUESTED MD THOMAS TO PUT IN WHATEVER THE NEEDED TRAUMA ORDERS ARE FOR A FALL. MD THOMAS SAW PT AND ORDERED A HEAD CT AND A LEFT KNEE XRAY.
[2020-08-04] MEDS ORDERED: heparin, porcine 5000 units/ml vial SQ SCH (20:00)
[2020-08-04] MEDS: K and/or MAG REPLACEMENT MC SCH (20:00)
[2020-08-04] MEDS ORDERED: heparin 10,000 units/1 ML INJ IV PRN (20:40)
[2020-08-04] MEDS ORDERED: heparin 10,000 units/1 ML INJ IV ONE (20:40)
[2020-08-04 21:32] LABS: PARTIAL THROMBOPLASTIN TIME 27 SECONDS (22-32)
[2020-08-04] MEDS: heparin 25,000 UNIT/250ml bag 250 ML IV SCH (22:36)
[2020-08-04] MEDS ORDERED: NICO-630 TD (22:47)
[2020-08-04 23:00] VITALS: BP 111/81
[2020-08-04] MEDS ORDERED: MESSAGE TO PHARMACY PO ONE (23:20)
[2020-08-04] MEDS ORDERED: dextrose ORAL solution 15 GM/59 ML bottle PO PRN ×2 (23:20)
[2020-08-04] MEDS ORDERED: glucagon, human recombinant 1mg kit SUBCUT PRN (23:20)
[2020-08-05] VITALS (8 sets, daily range): BP systolic 83–111; BP diastolic 48–76
[2020-08-05] MEDS: ipratropium/albuterol 3ml nebule NEB SCH ×4 (02:13→19:11)
[2020-08-05] MEDS: HYDROcodone/acetaminophen 10/325mg tab PO PRN ×2 (03:36→18:54)
[2020-08-05] MEDS: methylPREDNISolone sod succ 125mg/2ml vial IV SCH ×4 (03:36→19:47)
[2020-08-05 06:14] LABS: BASOPHILS % (AUTO) 0.2 % (0-1); EOSINOPHILS % (AUTO) 0 % (0-6); HEMATOCRIT 42.3 % (35.0-45.0); HEMOGLOBIN 13.6 g/dl (12.0-16.0); LYMPHOCYTES # (AUTO) 0.7 X10'3 (1.1-4.8); LYMPHOCYTES % (AUTO) 7.4 % (21-51); MEAN CORPUSCULAR HEMOGLOBIN 27.8 PG (27.0-31.0); MEAN CORPUSCULAR HGB CONC 32.2 g/dL (33.0-36.5); MEAN CORPUSCULAR VOLUME 86.4 FL (78-98); MEAN PLATELET VOLUME 8.9 FL (7.4-10.4); MONOCYTES # (AUTO) 0.2 X10'3 (0-0.9); MONOCYTES % (AUTO) 2.2 % (2-12); NEUTROPHILS # (AUTO) 8.3 X10'3 (1.8-7.7); NEUTROPHILS % (AUTO) 90.2 % (42-75); PLATELET COUNT 229 X10'3 (140-440); RED BLOOD COUNT 4.89 X10'6 (4.20-5.60); RED CELL DISTRIBUTION WIDTH 14.7 % (11.5-14.5); WHITE BLOOD COUNT 9.2 X10'3 (4.5-11.0)
--- NOTE | 2020-08-05 06:15 | NUR ---
Patient in room MED 307. I have received report from ELAINE GIL and had the opportunity to ask questions and assume patient care.
[2020-08-05 06:29] LABS: ALANINE AMINOTRANSFERASE 23 U/L (12-78); ALBUMIN 3.1 G/DL (3.4-5.0); ALBUMIN/GLOBULIN RATIO 0.9 (1.1-1.5); ALKALINE PHOSPHATASE 98 IU/L (46-116); AMYLASE 34 U/L (25-115); ANION GAP 9 (8-16); ASPARTATE AMINO TRANSFERASE 23 U/L (10-37); BLOOD UREA NITROGEN 13 MG/DL (7-18); BUN/CREATININE RATIO 17.3 (6.6-38.0); CALCIUM 8.8 MG/DL (8.5-10.1); CHLORIDE 95 MMOL/L (99-107); CHOL/HDL RATIO 4.3 (0.00-4.99); CHOLESTEROL 107 MG/DL (0-200); CREATININE 0.75 MG/DL (0.40-0.90); GLUCOSE 186 MG/DL (70-104); HDL CHOLESTEROL 25 MG/DL (35-60); LDL CHOLESTEROL 82 MG/DL (50-100); MAGNESIUM 1.5 MG/DL (1.5-2.4); PHOSPHORUS 3.8 MG/DL (2.3-4.5); SODIUM 135 MMOL/L (135-145); TOTAL CARBON DIOXIDE 30.7 MMOL/L (24-32); TOTAL PROTEIN 6.6 G/DL (6.4-8.2); TRIGLYCERIDES 32 MG/DL (20-135); eGFR 79 ML/MIN
[2020-08-05 06:31] LABS: POTASSIUM 2.9 MMOL/L (3.5-5.1)
[2020-08-05] MEDS: thiamine 100mg tablet PO SCH (08:25)
[2020-08-05] MEDS: potassium Cl 20 mEq SR tablet PO PRN ×3 (08:26→18:54)
[2020-08-05] MEDS: pantoprazole 40mg Tablet.DR PO SCH (08:27)
[2020-08-05] MEDS: folic acid 1mg tablet PO SCH (08:27)
[2020-08-05] MEDS: aspirin 81mg tab.chew PO SCH (08:27)
[2020-08-05] MEDS: multivitamins, therapeutics tablet PO SCH (08:27)
[2020-08-05] MEDS: carVEDilol 12.5mg tablet PO SCH ×2 (08:27→19:41)
[2020-08-05] MEDS: lisinopril 10 MG tablet PO SCH (08:28)
[2020-08-05] MEDS: furosemide 10 MG/1 ML 10ml inj IV SCH ×3 (08:29→19:46)
[2020-08-05] MEDS: nicotine 7mg patch - 24hr TD SCH (08:29)
[2020-08-05] MEDS: K and/or MAG REPLACEMENT MC SCH ×2 (08:31→20:00)
[2020-08-05] MEDS: insulin Lispro (HumaLOG) vial - multi-dose SQ SCH ×3 (09:23→19:39)
--- NOTE | 2020-08-05 10:17 | NUR ---
DM Consult: Pt A1C less than 7 and not appropriate for DM ed at this time. Addendum: 08/05/20 at [address] Amended: Links added.
[2020-08-05] MEDS: levoFLOXACIN-Levaquin 750MG/D5 150 ML IV SCH (11:10)
[2020-08-05] MEDS: heparin 25,000 UNIT/250ml bag 250 ML IV SCH (14:04)
--- NOTE | 2020-08-05 18:26 | NUR ---
Problems reprioritized. Patient report given, questions answered & plan of care reviewed with lance gann.
--- NOTE | 2020-08-05 18:26 | NUR ---
Patient in room MED 307. I have received report from Noemí HENRY and had the opportunity to ask questions and assume patient care.
[2020-08-05] MEDS ORDERED: insulin glargine (Lantus) pen - multi-dose SQ SCH (21:00)
[2020-08-06 02:00] VITALS: BP 96/66
[2020-08-06] MEDS: ipratropium/albuterol 3ml nebule NEB SCH ×2 (02:10→07:47)
[2020-08-06] MEDS: methylPREDNISolone sod succ 125mg/2ml vial IV SCH ×3 (02:11→14:00)
[2020-08-06] MEDS: heparin 25,000 UNIT/250ml bag 250 ML IV SCH (02:14)
[2020-08-06] MEDS: HYDROcodone/acetaminophen 10/325mg tab PO PRN ×2 (02:26→15:21)
[2020-08-06 03:42] LABS: BASOPHILS % (AUTO) 0.1 % (0-1); EOSINOPHILS % (AUTO) 0 % (0-6); LYMPHOCYTES # (AUTO) 0.6 X10'3 (1.1-4.8); LYMPHOCYTES % (AUTO) 2.9 % (21-51); MEAN CORPUSCULAR HEMOGLOBIN 27.2 PG (27.0-31.0); MEAN CORPUSCULAR HGB CONC 31.6 g/dL (33.0-36.5); MEAN CORPUSCULAR VOLUME 85.9 FL (78-98); MEAN PLATELET VOLUME 9.3 FL (7.4-10.4); MONOCYTES # (AUTO) 0.6 X10'3 (0-0.9); MONOCYTES % (AUTO) 3.2 % (2-12); NEUTROPHILS # (AUTO) 18.7 X10'3 (1.8-7.7); NEUTROPHILS % (AUTO) 93.8 % (42-75); PLATELET COUNT 242 X10'3 (140-440); RED BLOOD COUNT 4.77 X10'6 (4.20-5.60); RED CELL DISTRIBUTION WIDTH 14.6 % (11.5-14.5); WHITE BLOOD COUNT 19.9 X10'3 (4.5-11.0)
[2020-08-06 04:19] LABS: ALANINE AMINOTRANSFERASE 22 U/L (12-78); ALBUMIN 2.9 G/DL (3.4-5.0); ALBUMIN/GLOBULIN RATIO 0.9 (1.1-1.5); ALKALINE PHOSPHATASE 92 IU/L (46-116); AMYLASE 46 U/L (25-115); ANION GAP 6 (8-16); ASPARTATE AMINO TRANSFERASE 19 U/L (10-37); BILIRUBIN,TOTAL 0.6 MG/DL (0.1-1.0); BLOOD UREA NITROGEN 17 MG/DL (7-18); BUN/CREATININE RATIO 21.8 (6.6-38.0); CALCIUM 9.1 MG/DL (8.5-10.1); CHLORIDE 97 MMOL/L (99-107); CREATININE 0.78 MG/DL (0.40-0.90); GLUCOSE 178 MG/DL (70-104); MAGNESIUM 1.8 MG/DL (1.5-2.4); POTASSIUM 3.9 MMOL/L (3.5-5.1); SODIUM 135 MMOL/L (135-145); TOTAL CARBON DIOXIDE 32.2 MMOL/L (24-32); TOTAL PROTEIN 6.3 G/DL (6.4-8.2); eGFR 76 ML/MIN
[2020-08-06 06:00] VITALS: BP 101/70
--- NOTE | 2020-08-06 06:28 | NUR ---
Problems reprioritized. Patient report given, questions answered & plan of care reviewed with Noemí HENRY.
--- NOTE | 2020-08-06 06:32 | NUR ---
Patient in room MED 307. I have received report from lance gann and had the opportunity to ask questions and assume patient care.
[2020-08-06] MEDS: furosemide 10 MG/1 ML 10ml inj IV SCH (08:13)
[2020-08-06] MEDS: folic acid 1mg tablet PO SCH (08:14)
[2020-08-06] MEDS: pantoprazole 40mg Tablet.DR PO SCH (08:14)
[2020-08-06] MEDS: levoFLOXACIN-Levaquin 750MG/D5 150 ML IV SCH (08:14)
[2020-08-06] MEDS: multivitamins, therapeutics tablet PO SCH (08:15)
[2020-08-06] MEDS: aspirin 81mg tab.chew PO SCH (08:15)
[2020-08-06] MEDS: lisinopril 10 MG tablet PO SCH (08:15)
[2020-08-06] MEDS: thiamine 100mg tablet PO SCH (08:15)
[2020-08-06] MEDS: carVEDilol 12.5mg tablet PO SCH (08:15)
[2020-08-06] MEDS: nicotine 7mg patch - 24hr TD SCH (08:16)
[2020-08-06] MEDS: K and/or MAG REPLACEMENT MC SCH (08:17)
[2020-08-06] MEDS: insulin Lispro (HumaLOG) vial - multi-dose SQ SCH ×2 (08:33→13:42)
[2020-08-06] MEDS ORDERED: mineral oil/petrolatum, white cream 113gm jar TP SCH (09:35)
[2020-08-06] MEDS ORDERED: insulin glargine (Lantus) pen - multi-dose SQ ONE (10:00)
[2020-08-06] MEDS ORDERED: insulin Lispro (HumaLOG) vial - multi-dose SQ ONE (10:05)
[2020-08-06] MEDS ORDERED: APIX5TAB3 PO (10:23)
[2020-08-06] MEDS ORDERED: PRED10TA23 PO (10:23)
[2020-08-06] MEDS ORDERED: LEVO500T89 PO (10:23)
[2020-08-06] MEDS ORDERED: BUDE10.22 INH (10:23)
[2020-08-06] MEDS ORDERED: METF-950 PO (10:23)
[2020-08-06] MEDS ORDERED: THIA50TA10 PO (10:25)
[2020-08-06] MEDS ORDERED: FOLI0.4T6 PO (10:25)
[2020-08-06 11:00] VITALS: BP 97/61
--- NOTE | 2020-08-06 11:47 | NUR ---
Wound care was asked to see patient regarding her eczema. No areas of concern per patient, no photos in chart. Eucerin Plus lotion ordered. No Wound care needs at this time.
[2020-08-06 14:00] VITALS: BP 98/62
--- NOTE | 2020-08-06 16:30 | NUR ---
reviewed all discharge instructions with pt and , including need for f/u appt with pmd,stripper cutter machine and dr. cedeño, prescriptions confirmed with adan @ [facility], also, accu check machine, supplies and blood pressure machine called in, sl dc'd from [facility], both sites clear. pt dc'd via w/c with all belongings
[2020-08-06] MEDS ORDERED: lactobacillus rhamnosus 10,000 MMU CELLS/CAPSULE PO SCH (20:00)
== END 2020-08-06 16:35 | disposition home or self-care (01) | DRG 194 ==
LOC: ER 06:26 → ED HOLD 13:59 → EDBEDREQ 18:16 → MED 3N 18:50
PROVIDERS: ADMIT Family Medicine; ATTEND Family Medicine
PROC: BW241ZZ Computerized Tomography (CT Scan) of Chest and Abdomen using Low Osmolar Contrast (ICD-10-PCS; principal; 2020-08-04)
DX: I11.0 Hypertensive heart disease with heart failure (principal); J96.21 Acute and chronic respiratory failure with hypoxia; I26.99 Other pulmonary embolism without acute cor pulmonale; I42.0 Dilated cardiomyopathy; F15.20 Other stimulant dependence, uncomplicated; Z20.822 Contact with and (suspected) exposure to COVID-19; E11.9 Type 2 diabetes mellitus without complications; F10.20 Alcohol dependence, uncomplicated; F17.210 Nicotine dependence, cigarettes, uncomplicated; G89.4 Chronic pain syndrome; I50.23 Acute on chronic systolic (congestive) heart failure; J20.9 Acute bronchitis, unspecified; J44.0 Chronic obstructive pulmonary disease with (acute) lower respiratory infection; J44.1 Chronic obstructive pulmonary disease with (acute) exacerbation; F32.9 Major depressive disorder, single episode, unspecified; M54.9 Dorsalgia, unspecified; Z88.0 Allergy status to penicillin; Z88.8 Allergy status to other drugs, medicaments and biological substances; Z91.018 Allergy to other foods; Z82.49 Family history of ischemic heart disease and other diseases of the circulatory system; Z86.73 Personal history of transient ischemic attack (TIA), and cerebral infarction without residual deficits; Z95.0 Presence of cardiac pacemaker; Z91.14 Patient's other noncompliance with medication regimen; Z90.49 Acquired absence of other specified parts of digestive tract; Z79.899 Other long term (current) drug therapy; Z79.51 Long term (current) use of inhaled steroids; Z79.82 Long term (current) use of aspirin
CPT/HCPCS: 36415; 70450; 71045; 71275; 73130; 73564; 80053; 80061; 80305; 81001; 82150; 82948; 83036; 83735; 83880; 84100; 84132; 84484; 85025; 85610; 85730; 87081; 87635; 93005; 93306; 94640; 94760; 96374; 96375; 97116; 97161; 97530; 99285; C9803; G0378; J1644; J1815; J1940; J1956; J2060; J2930; J3411; Q9967

== ENCOUNTER 2020-09-24 20:08 | Emergency (ER) | payer MEDICAID ==
[~2020-09-24] VITALS: Ht 170.2 cm; Wt 72.7 kg
[~2020-09-24 20:08] MED LIST changes: -ALB0.5UD IH; +ALBU17AE26 PO; -AMIO200T61 PO; +APIX5TAB3 PO; +ASPI-1265 PO; +BUDE10.22 INH; -CARV25TA PO; +CARV25TA56 PO; +DIPH25CA83 PO; +FURO-150 PO; -LACT1CAP26 PO; +NICO-630 TD; -NICO-631 TD; +PANT20TA18 PO; +POTA20TA19 PO; +THIA50TA10 PO; +VILA40TA PO
[2020-09-24 21:10] VITALS: BP 107/66
== END 2020-09-25 02:57 | disposition left against medical advice (07) ==
LOC: ER 20:09
DX: M25.552 Pain in left hip (principal); Z53.21 Procedure and treatment not carried out due to patient leaving prior to being seen by health care provider